=== PATIENT | female | born 1985 | race African-American/Black ===

== ENCOUNTER 2018-12-29 18:14 | Emergency (ER) | payer MEDICAID ==
[~2018-12-29] VITALS: Ht 180.3 cm; Wt 130.0 kg
[2018-12-29] MEDS ORDERED: IBUPROFEN 600MG TABLET PO ONE (20:15)
[2018-12-29 20:51] VITALS: BP 120/75
== END 2018-12-29 21:20 | disposition home or self-care (01) ==
LOC: ER 18:14
DX: M54.9 Dorsalgia, unspecified (principal); F17.210 Nicotine dependence, cigarettes, uncomplicated; V44.5XXA Car driver injured in collision with heavy transport vehicle or bus in traffic accident, initial encounter; Y93.89 Activity, other specified; Y92.410 Unspecified street and highway as the place of occurrence of the external cause
CPT/HCPCS: 99283